=== PATIENT | female | born 1965 | race Caucasian/White ===

== ENCOUNTER 2019-07-07 19:47 | Emergency (ER) | payer SELFPAY ==
[~2019-07-07] VITALS: Ht 154.9 cm; Wt 80.9 kg
[2019-07-07 19:52] VITALS: BP 131/71
--- NOTE | 2019-07-07 19:53 | NUR ---
TRIAGE COMPLETE. PT TO WAIT IN LOBBY FOR BED IN MAIN ED. VSS.
--- NOTE | 2019-07-07 21:40 | NUR ---
TO BED # 07 AMBULATORY
--- NOTE | 2019-07-07 21:45 | NUR ---
54 Y FEMALE, PRESENTED TO ED, C/O L HIP AND ALVA KNEE PAIN 10/10 S/P MECH FALL TODAY. PT STATED "I TOOK SOME MOTRIN BUT IT DID NOT HELP". NO SWELLING NOTED ON ALVA KNEE, NO VISIBLE INJURY NOTED. PT AMBULATED WITH STEADY GAIT. AAOX4, [facility] [address] MADRIGAL MADE AWARE, WILL CONTINUE TO MONITOR CLOSELY. BED LOCKED IN LOWEST POSITION, SIDERAIL UPX1.
[2019-07-07 22:30] VITALS: BP 136/78
--- NOTE | 2019-07-07 22:30 | NUR ---
Patient discharged with v/s stable. Written and verbal after care instructions given and explained. Patient alert, oriented and verbalized understanding of instructions. Ambulatory with steady gait. All questions addressed prior to discharge. ID band removed. Patient advised to follow up with PMD. Rx of NORCO 5-325MG AND MOTRIN 800MG given. Patient educated on indication of medication including possible reaction and side effects. Opportunity to ask questions provided and answered.
== END 2019-07-07 22:30 | disposition home or self-care (01) ==
LOC: MED 19:47
DX: S80.02XA Contusion of left knee, initial encounter (principal); S80.01XA Contusion of right knee, initial encounter; M25.552 Pain in left hip; W19.XXXA Unspecified fall, initial encounter; Y93.89 Activity, other specified; Y92.89 Other specified places as the place of occurrence of the external cause; Y99.8 Other external cause status
CPT/HCPCS: 73502; 73562; 99283